=== PATIENT | female | born 1955 | race Caucasian/White ===

== ENCOUNTER 2019-10-12 09:42 | Outpatient (CLI) | payer MEDICARE ==
--- NOTE | 2019-10-12 10:42 | MRI ---
MR the lumbar spine without contrast: 10/12/2019 History: Lumbar radiculopathy COMPARISON: None. TECHNIQUE: Multiplanar multisequence MR images were obtained of lumbar spine without IV contrast FINDINGS: On the basis of 5 lumbar type vertebral bodies, conus medullaris terminates at theL1 level. Sagittal STIR imaging demonstrates no focal area of osseous marrow edema. T12-L1:Mild bilateral facet hypertrophy. Intervertebral disc height and signal intensity within janel l limits with no central canal or neural foraminal stenosis. L1-2:Disc space narrowing with disc desiccation and mild disc bulge. No central canal or neural aleks inal stenosis. Prominent hemangioma noted at the L2 level. L2-3:Disc space narrowing and disc desiccation with mild disc bulge. There is a small foraminal disc protrusion on the right. No significant central canal or neural foraminal stenosis. L3-4:Disc space narrowing with disc desiccation and mild disc bulge. There is a small foraminal disc protrusion on the left. There is mild bilateral facet hypertrophy. No significant central canal or neural foraminal stenosis. L4-5:There is disc space narrowing with disc desiccation and mild disc bulge. Bilateral facet hypertr ophy noted. No significant central canal or neural foraminal stenosis. L5-S1:There is disc space narrowing with disc desiccation and mild disc bulge. Mild bilateral facet h ypertrophy. Vacuum disc formation. No significant central canal or left neural foraminal stenosis. Mild right neural foraminal stenosis. Image retroperitoneal structures demonstrateno acute findings. IMPRESSION: Lumbar spine degenerative change as detailed above.
== END 2019-10-12 09:43 | disposition home or self-care (01) ==
LOC: TBSIIMAG 09:42
PROVIDERS: ATTEND Neurological Surgery
DX: M47.26 Other spondylosis with radiculopathy, lumbar region (principal)
CPT/HCPCS: 72148

== ENCOUNTER 2020-07-21 07:32 | Outpatient (CLI) | payer MEDICARE ==
--- NOTE | 2020-07-21 11:26 | NM ---
RADIONUCLIDE PARATHYROID SCAN WITH PLANAR AND SPECT-CT IMAGES: HISTORY: Hyperparathyroidism, unspecified RADIOPHARMACEUTICAL:26mCi technetium 99m-sestamibi injected intravenously FINDINGS: There is physiologic uptake in the salivary glands and thyroid gland. There is persistent increased uptake in a 12 mm right superior parathyroid gland adenoma. IMPRESSION: Right parathyroid adenoma.
== END 2020-07-21 07:33 | disposition home or self-care (01) ==
LOC: NM 07:32
PROVIDERS: ATTEND Internal Medicine Endocrinology, Diabetes & Metabolism
DX: E21.2 Other hyperparathyroidism (principal); D36.7 Benign neoplasm of other specified sites
CPT/HCPCS: 78072; A9500

== ENCOUNTER 2020-08-14 14:34 | Outpatient (CLI) | payer MEDICARE ==
[~2020-08-14 14:34] MED LIST: Iopamidol 370 76% 100 ML VIAL ONE
--- NOTE | 2020-08-14 16:16 | CT ---
CT NECK WITH AND WITHOUT CONTRAST: (Parathyroid protocol) DATE: 08/14/2020 HISTORY: [id number] with hyperparathyroidism, hypercalcemia. TECHNIQUE: Precontrast scan, 25 seconds postcontrast scan, and 65 second postcontrast scan, from several centime ters inferior to the rafael to the skull base. Coronal and sagittal reconstructions. FINDINGS: Abutting the posterior surface of the mid-lower pole of the right lobe of the thyroid gland, there is a well-circumscribed, approximately 1.5 x 1.1 x 1.9 cm nodule which has no intrinsic iodine. Portions of the enhance strongly during the arterial phase, and washout relatively rapidly. However, it contains numerous nonenhancing focal lesions within it which appears to be multiple cystic components. This demonstrated increased uptake on nuclear medicine sestamibi scan of 07/21/2020. Cluster of tortuous collateral veins in the left supraclavicular fossa. No thyromegaly. Nonspecific mild groundglass changes in the bilateral upper lung zones (mild pulmonary interstitial e nadeen?) Dense sclerotic calcification in the region of the left cricoarytenoid joint.. IMPRESSION: An approximately 2 cm mass posterior to right lobe of thyroid gland is a very good candidate for para thyroid adenoma.
== END 2020-08-14 14:35 | disposition home or self-care (01) ==
LOC: BICCT 14:34
PROVIDERS: ATTEND Otolaryngology Plastic Surgery within the Head & Neck
DX: E21.3 Hyperparathyroidism, unspecified (principal); E04.1 Nontoxic single thyroid nodule
CPT/HCPCS: 70492; 82565; Q9967

== ENCOUNTER 2022-02-13 14:39 | Inpatient (IN) | payer MEDICARE ==
[2022-02-13] MEDS ORDERED: Morphine 4 MG/ML VIAL ONE (15:48)
[2022-02-13] MEDS ORDERED: Dicyclomine 20 MG/2 ML VIAL ONE (15:48)
[2022-02-13] MEDS ORDERED: Ondansetron PF 4 MG/2 ML Vial ONE (15:48)
[2022-02-13] MEDS ORDERED: Famotidine/PF 20 mg/2ml Vial ONE (15:49)
[2022-02-13 15:52] LABS: #Eosinphils 0.1 thou/uL (0.0-0.7); #Lymphocytes 2.5 thou/uL (1.20-3.40); %Basophils 0.3 % (0.0-1.0); %Eosinophils 1.1 % (0.0-10.0); %Lymphocytes 21.4 % (21.0-51.0); %Monocytes 8.8 % (0.0-10.0); %Neutrophils 68.4 % (42.0-75.0); Hemoglobin 14.4 g/dL (12.0-16.0); Mean Corpuscular HGB CONC 34.5 g/dL (32.0-36.0); Mean Corpuscular Hemoglobin 32.9 pg (27.0-31.0); Mean Corpuscular Volume 95.4 fL (78.0-98.0); Mean Platelet Volume 5.7 fL (7.4-10.4); Platelet Count 432 thou/uL (130-400); RBC Distribution Width 11.2 % (11.5-14.5); Red Blood Cell (RBC) Count 4.37 mill/uL (4.20-5.40); White Blood Cell (WBC) Count 11.7 thou/uL (4.8-10.8)
[2022-02-13 16:12] LABS: ALT (SGPT) 16 U/L (8-55); AST (SGOT) 18 U/L (5-34); Albumin 3.9 g/dL (3.4-4.8); Alkaline Phosphatase 100 U/L (40-110); Anion Gap 12 mmol/L (10-20); BUN (Urea Nitrogen) 19 mg/dL (9.8-20.1); Bilirubin, Total 0.8 mg/dL (0.2-1.2); Calc. Creatinine Clearance 0 mL/min (70-130); Carbon Dioxide 23 mmol/L (23-31); Chloride 107 mmol/L (98-107); Globulin 2.3 g/dL (2.4-3.5); Glucose 89 mg/dL (80-115); Lipase 20 U/L (8-78); Potassium 3.9 mmol/L (3.5-5.1); Protein, Total 6.2 g/dL (5.8-8.1); Sodium 138 mmol/L (136-145)
[2022-02-13] MEDS ORDERED: Mag-Al 1200 mg/1200 mg/30 ML UDCUP ONE (17:41)
[2022-02-13] MEDS ORDERED: Lidocaine Viscous Sol 2% 15 ml UD Cup ONE (17:41)
[2022-02-13 18:01] LABS: Glucose, Urine (Dipstick) Normal (Negative); Protein, Urine (Dipstick) Negative (Neg-Trace)
[2022-02-13 18:02] LABS: Bacteria/HPF None Seen HPF (None Seen); Bilirubin Negative (Negative); Blood, Urine Negative (Negative); Clarity Clear (Clear); Ketone, Urine Negative (Negative); Leukocyte 250 Leu/uL (Negative); Nitrite Negative (Negative); RBC/HPF 0-3 HPF (0-3); Specific Gravity, Urine 1.016 (1.002-1.036); Squamous Epithelial 0-3 HPF (0-3); Urobilinogen Normal mg/dL (Less than 2)
[2022-02-13 19:34] LABS: Troponin I Less than 0.010 ng/mL (< 0.028)
[2022-02-13] MEDS ORDERED: Ondansetron ODT 4 MG TAB PO PRN (20:19)
[2022-02-13] MEDS ORDERED: Acetaminophen 325 MG TAB PO PRN (20:19)
[2022-02-13] MEDS ORDERED: Acetaminophen 650 MG Suppository PR PRN (20:19)
[2022-02-13] MEDS ORDERED: Ondansetron PF 4 MG/2 ML Vial IVP PRN (20:19)
[2022-02-13] MEDS ORDERED: traZODone HCl 50 MG TAB PO PRN (20:27)
[2022-02-13] MEDS ORDERED: Morphine 2 MG/ML VIAL SLOW IVP SCH (20:45)
[2022-02-13] MEDS ORDERED: Pantoprazole 40 MG VIAL IVP SCH (20:45)
[2022-02-13 22:04] VITALS: BMI 26.4
[2022-02-13 22:38] LABS: Troponin I Less than 0.010 ng/mL (< 0.028)
[2022-02-13] MEDS: Lorazepam 0.5 MG TAB PO PRN (23:44)
[2022-02-14 05:33] LABS: Anion Gap 12 mmol/L (10-20); BUN (Urea Nitrogen) 15 mg/dL (9.8-20.1); Calc. Creatinine Clearance 77 mL/min (70-130); Calcium 8.4 mg/dL (7.8-10.44); Carbon Dioxide 24 mmol/L (23-31); Chloride 107 mmol/L (98-107); Glucose 95 mg/dL (80-115); Potassium 4.5 mmol/L (3.5-5.1); Sodium 138 mmol/L (136-145)
[2022-02-14 05:40] LABS: #Eosinphils 0.1 thou/uL (0.0-0.7); #Lymphocytes 1.5 thou/uL (1.20-3.40); #Monocytes 1.3 thou/uL (0.11-0.59); #Neutrophils 12.3 thou/uL (1.40-6.50); %Basophils 0.2 % (0.0-1.0); %Eosinophils 0.7 % (0.0-10.0); %Lymphocytes 9.9 % (21.0-51.0); %Monocytes 8.5 % (0.0-10.0); %Neutrophils 80.8 % (42.0-75.0); Hemoglobin 13.9 g/dL (12.0-16.0); Mean Corpuscular HGB CONC 32.6 g/dL (32.0-36.0); Mean Corpuscular Hemoglobin 32.4 pg (27.0-31.0); Mean Corpuscular Volume 99.5 fL (78.0-98.0); Mean Platelet Volume 5.8 fL (7.4-10.4); Platelet Count 351 thou/uL (130-400); RBC Distribution Width 11.1 % (11.5-14.5); Red Blood Cell (RBC) Count 4.29 mill/uL (4.20-5.40); White Blood Cell (WBC) Count 15.2 thou/uL (4.8-10.8)
[2022-02-14] MEDS ORDERED: Morphine 4 MG/ML VIAL SLOW IVP SCH (06:00)
[2022-02-14] MEDS ORDERED: Pantoprazole 40 MG VIAL IVP SCH (09:00)
[2022-02-14] MEDS: Morphine 2 MG/ML VIAL SLOW IVP PRN ×2 (16:39→21:26)
[2022-02-14] MEDS ORDERED: cefTRIAXone\\ROCEPHIN 1 GM in Sodium Chloride 0.9% 100 ML IVPB SCH (17:00)
[2022-02-14] MEDS: Pantoprazole 40 MG VIAL IVP SCH (19:56)
[2022-02-14] MEDS: Lorazepam 0.5 MG TAB PO PRN (21:26)
[2022-02-15 05:31] LABS: Hemoglobin 14.2 g/dL (12.0-16.0); Mean Corpuscular HGB CONC 32.1 g/dL (32.0-36.0); Mean Corpuscular Hemoglobin 32.2 pg (27.0-31.0); Platelet Count 325 thou/uL (130-400); RBC Distribution Width 11.3 % (11.5-14.5); Red Blood Cell (RBC) Count 4.41 mill/uL (4.20-5.40); White Blood Cell (WBC) Count 9.2 thou/uL (4.8-10.8)
[2022-02-15 05:58] LABS: Band 2 % (5-11); Eosinophils 5 % (0-10); Lymphocytes 11 % (21-51); MDiff Complete? YES; Monocytes 13 % (0-10); Neutrophil 68 % (42-75); Reactive Lymphocytes 1 % (0-10)
[2022-02-15 06:01] LABS: ALT (SGPT) 32 U/L (8-55); AST (SGOT) 32 U/L (5-34); Albumin 3.7 g/dL (3.4-4.8); Alkaline Phosphatase 118 U/L (40-110); Anion Gap 9 mmol/L (10-20); BUN (Urea Nitrogen) 15 mg/dL (9.8-20.1); Bilirubin, Total 0.7 mg/dL (0.2-1.2); Calc. Creatinine Clearance 73 mL/min (70-130); Calcium 9.1 mg/dL (7.8-10.44); Carbon Dioxide 28 mmol/L (23-31); Chloride 104 mmol/L (98-107); Globulin 2.7 g/dL (2.4-3.5); Glucose 99 mg/dL (80-115); Potassium 4.2 mmol/L (3.5-5.1); Protein, Total 6.4 g/dL (5.8-8.1); Sodium 137 mmol/L (136-145)
[2022-02-15] MEDS: Pantoprazole 40 MG VIAL IVP SCH (08:00)
[2022-02-15 11:41] VITALS: BP 101/56; TEMP 98
== END 2022-02-15 12:46 | disposition home or self-care (01) | DRG 690 ==
LOC: ERS 14:39 → 2SW 18:54 → OBSVTOIN 02-15 11:45
PROVIDERS: ADMIT Internal Medicine; ATTEND Internal Medicine
DX: N39.0 Urinary tract infection, site not specified (principal); Z20.822 Contact with and (suspected) exposure to COVID-19; K21.9 Gastro-esophageal reflux disease without esophagitis; R10.13 Epigastric pain; B95.1 Streptococcus, group B, as the cause of diseases classified elsewhere; Z87.820 Personal history of traumatic brain injury; Z98.84 Bariatric surgery status; Z79.899 Other long term (current) drug therapy; Z98.890 Other specified postprocedural states; Z90.710 Acquired absence of both cervix and uterus; Z86.010 Personal history of colon polyps
CPT/HCPCS: 36415; 71045; 74177; 76700; 80048; 80053; 81003; 81015; 83605; 83690; 84484; 85025; 87077; 87086; 87338; 93005; 94760; 96372; 96374; 96375; C9113; J0500; J0696; J1170; J2270; J2405; J3490; Q9967; S0028; U0003; U0005

== ENCOUNTER 2022-10-08 10:58 | Outpatient (CLI) | payer MEDICARE | END 2022-10-08 10:59 | disposition home or self-care (01) | LOC: BICMAMMO 10:58 | PROVIDERS: ATTEND Family Medicine | DX: Z12.31 Encounter for screening mammogram for malignant neoplasm of breast (principal) | CPT/HCPCS: 77063; 77067 ==

== ENCOUNTER 2023-01-05 11:39 | Emergency (ER) | payer MEDICARE ==
[2023-01-05 15:31] LABS: #Basophils 0.1 thou/uL (0.0-0.2); #Eosinphils 0.2 thou/uL (0.0-0.7); #Lymphocytes 2.1 thou/uL (1.20-3.40); #Monocytes 0.6 thou/uL (0.11-0.59); #Neutrophils 5.3 thou/uL (1.40-6.50); %Basophils 0.7 % (0.0-1.0); %Eosinophils 2.1 % (0.0-10.0); %Lymphocytes 25.2 % (21.0-51.0); %Monocytes 6.8 % (0.0-10.0); %Neutrophils 65.2 % (42.0-75.0); Hemoglobin 14.7 g/dL (12.0-16.0); Mean Corpuscular Hemoglobin 32.9 pg (27.0-31.0); Mean Corpuscular Volume 99.7 fl (78.0-98.0); Mean Platelet Volume 6.4 fL (7.4-10.4); Platelet Count 403 10x3/uL (130-400); RBC Distribution Width 11.2 % (11.5-14.5); Red Blood Cell (RBC) Count 4.46 mill/uL (4.20-5.40); White Blood Cell (WBC) Count 8.2 10x3/uL (4.8-10.8)
[2023-01-05] MEDS ORDERED: Morphine 4 MG/ML VIAL ONE (15:43)
[2023-01-05] MEDS ORDERED: Lidocaine 2% PF 5 ML VIAL ONE (15:43)
[2023-01-05] MEDS ORDERED: Boostrix 0.5 ML (Tdap) VIAL (>/=7 yrs of age) ONE (15:43)
[2023-01-05] MEDS ORDERED: Ketorolac Tromethamine 30 MG/ML VIAL ONE (15:43)
[2023-01-05 15:58] LABS: AST (SGOT) 22 U/L (5-34); Anion Gap 15 mmol/L (10-20); Bilirubin, Total 0.3 mg/dL (0.2-1.2); Calcium 9.7 mg/dL (7.8-10.44); Carbon Dioxide 22 mmol/L (23-31); Chloride 107 mmol/L (98-107); Potassium 4.5 mmol/L (3.5-5.1); Protein, Total 6.6 g/dL (5.8-8.1); Sodium 139 mmol/L (136-145)
[2023-01-05 16:04] LABS: ALT (SGPT) 17 U/L (8-55); Albumin 4.2 g/dL (3.4-4.8); Alkaline Phosphatase 117 U/L (40-110); BUN (Urea Nitrogen) 18 mg/dL (9.8-20.1); Calc. Creatinine Clearance 0 mL/min (70-130); Estimated GFR 54; Globulin 2.4 g/dL (2.4-3.5); Glucose 94 mg/dL (80-115)
[2023-01-05] MEDS ORDERED: Bacitracin 1 PK ONE (16:16)
== END 2023-01-05 18:00 | disposition home or self-care (01) ==
LOC: ERS 11:39
DX: S52.592A Other fractures of lower end of left radius, initial encounter for closed fracture (principal); S52.612A Displaced fracture of left ulna styloid process, initial encounter for closed fracture; S20.219A Contusion of unspecified front wall of thorax, initial encounter; S00.91XA Abrasion of unspecified part of head, initial encounter; R91.1 Solitary pulmonary nodule; K21.9 Gastro-esophageal reflux disease without esophagitis; Z79.899 Other long term (current) drug therapy; Z23 Encounter for immunization; W18.09XA Striking against other object with subsequent fall, initial encounter
CPT/HCPCS: 29125; 36415; 71250; 80053; 84484; 85025; 90471; 90715; 93005; 96374; 96375; J1885; J2001; J2270

== ENCOUNTER 2023-01-07 16:37 | Emergency (ER) | payer OTHER, MEDICARE ==
[2023-01-07] MEDS ORDERED: Morphine 4 MG/ML VIAL ONE (18:00)
[2023-01-07] MEDS ORDERED: Promethazine 25 MG TAB ONE (18:00)
== END 2023-01-07 18:57 | disposition home or self-care (01) ==
LOC: ERS 16:37
DX: S52.502A Unspecified fracture of the lower end of left radius, initial encounter for closed fracture (principal); L29.9 Pruritus, unspecified; K21.9 Gastro-esophageal reflux disease without esophagitis; V80.010A Animal-rider injured by fall from or being thrown from horse in noncollision accident, initial encounter
CPT/HCPCS: 96372; 99283; J2270; Q0169

== ENCOUNTER 2023-01-11 11:49 | Day surgery (SDC) | payer MEDICARE ==
[2023-01-10 13:01] VITALS: BMI 25.5
[2023-01-11] MEDS ORDERED: Bupivacaine HCl 0.5%/Epinephrine 1:200,000/PF 30 ml Vial ONE (13:38)
[2023-01-11] MEDS ORDERED: CEFAZOLIN 2 GM VIAL ONE (13:48)
[2023-01-11] MEDS ORDERED: Sodium Chloride 0.9% 100 ML ONE (13:48)
[2023-01-11] MEDS ORDERED: Midazolam HCl 2 mg/2 ml Vial ONE (14:01)
[2023-01-11] MEDS ORDERED: fentaNYL PF 100 MCG/2 ML SYRINGE ONE (14:04)
[2023-01-11] MEDS ORDERED: Dexamethasone 20 MG/5 ML VIAL ONE (14:12)
[2023-01-11] MEDS ORDERED: Ondansetron PF 4 MG/2 ML Vial ONE (14:12)
[2023-01-11] MEDS ORDERED: PROPOFOL 200 MG/20 ML VIAL ONE (14:12)
[2023-01-11] MEDS ORDERED: Lidocaine 1% PF 5 ML VIAL ONE (14:12)
[2023-01-11] MEDS ORDERED: Ketorolac Tromethamine 30 MG/ML VIAL ONE (14:12)
[2023-01-11] MEDS ORDERED: Bupivacaine PF 0.5% 30 ML VIAL ONE (14:33)
[2023-01-11] MEDS ORDERED: fentaNYL 50 mcg/mL 1 mL Vial ONE (15:45)
== END 2023-01-11 17:10 | disposition home or self-care (01) ==
LOC: SDC 11:49
PROVIDERS: ATTEND Orthopaedic Surgery
PROC: 01N50ZZ Release Median Nerve, Open Approach (ICD-10-PCS; principal; 2023-01-11)
PROC: 0PSJ04Z Reposition Left Radius with Internal Fixation Device, Open Approach (ICD-10-PCS; 2023-01-11)
DX: S52.532A Colles' fracture of left radius, initial encounter for closed fracture (principal); G56.02 Carpal tunnel syndrome, left upper limb; I10 Essential (primary) hypertension; K21.9 Gastro-esophageal reflux disease without esophagitis; E89.2 Postprocedural hypoparathyroidism; Z79.899 Other long term (current) drug therapy; Z91.048 Other nonmedicinal substance allergy status; Z98.84 Bariatric surgery status; W19.XXXA Unspecified fall, initial encounter
CPT/HCPCS: 25608; 64721; 73100; C1713 ×3; J3010; J1100; J1885; J2250; J2405; J2704; J3490; S0020

== ENCOUNTER 2025-08-05 14:35 | Outpatient (CLI) | payer MEDICARE | END 2025-08-05 14:36 | disposition home or self-care (01) | LOC: BICMAMMO 14:35 | PROVIDERS: ATTEND Family Medicine | DX: Z12.31 Encounter for screening mammogram for malignant neoplasm of breast (principal); Z78.0 Asymptomatic menopausal state; M81.0 Age-related osteoporosis without current pathological fracture | CPT/HCPCS: 77063; 77067; 77080 ==